=== PATIENT | male | born 1965 | race Caucasian/White ===

== ENCOUNTER 2017-02-17 22:23 | Emergency (ER) | payer MEDICARE, MEDICAID ==
[~2017-02-17] VITALS: Ht 170.2 cm; Wt 66.0 kg
[2017-02-17] MEDS ORDERED: TAMSULOSIN HCL 0.4MG SR CAPSULE PO ONE (23:45)
[2017-02-17] MEDS ORDERED: HYDROCODONE/ACETAMINOPHEN 10/325MG TABLET PO ONE (23:45)
[2017-02-17 23:56] VITALS: BP 140/76
== END 2017-02-17 23:55 | disposition home or self-care (01) ==
LOC: ER 22:23
DX: T83.098A Other mechanical complication of other urinary catheter, initial encounter (principal); N40.0 Benign prostatic hyperplasia without lower urinary tract symptoms; E11.9 Type 2 diabetes mellitus without complications; I10 Essential (primary) hypertension; Z94.0 Kidney transplant status; Y84.6 Urinary catheterization as the cause of abnormal reaction of the patient, or of later complication, without mention of misadventure at the time of the procedure; Y92.810 Car as the place of occurrence of the external cause
CPT/HCPCS: 99283